=== PATIENT | male | born 1980 | race Caucasian/White ===

== ENCOUNTER 2021-04-21 15:30 | Emergency (ER) | payer OTHER ==
[~2021-04-21] VITALS: Ht 175.3 cm; Wt 86.2 kg
[2021-04-21 15:57] LABS: BASOPHILS ABSOLUTE AUTO 0.05 K/mm3 (0.00-0.23); BASOPHILS PERCENT AUTO 0 % (0-2); EOSINOPHILS PERCENT AUTO 1 % (0-6); Hemoglobin 17.3 g/dL (13.5-17.5); IMMATURE GRAN ABSOLUTE AUTO 0.07 K/mm3 (0.00-0.10); IMMATURE GRAN PERCENT AUTO 0 % (0-1); LYMPHOCYTES ABSOLUTE AUTO 1.02 K/mm3 (0.84-5.20); LYMPHOCYTES PERCENT AUTO 6 % (21-46); MONOCYTES ABSOLUTE AUTO 1.43 K/mm3 (0.16-1.47); MONOCYTES PERCENT AUTO 8 % (4-13); Mean Corpuscular HGB 29.2 pg (26.0-34.0); Mean Corpuscular HGB Conc 34.6 g/dL (31.5-36.5); Mean Corpuscular Volume 84 fL (80-100); Mean Platelet Volume 9.3 fL (9.1-12.4); NEUTROPHILS ABSOLUTE AUTO 15.31 K/mm3 (1.96-9.15); NEUTROPHILS PERCENT AUTO 85 % (41-73); Platelet Count 228 K/mm3 (150-400); RDW Coefficient Variation 12.8 % (11.7-14.2); RDW Standard Deviation 39.7 fL (35.1-46.3); Red Blood Cell Count 5.93 M/mm3 (4.30-5.90); White Blood Cell Count 17.98 K/mm3 (4.00-11.30)
[2021-04-21 16:34] LABS: Alanine Aminotransfer (ALT/SGP 73 U/L (12-78); Albumin, Blood 3.4 g/dL (3.4-5.0); Alk Phos 74 U/L (50-136); Anion Gap 5 mmol/L (6-16); Aspartate Aminotrans (AST/SGOT 29 U/L (12-37); Bilirubin, Total 0.4 mg/dL (0.1-1.0); Blood Urea Nitrogen 10 mg/dL (8-24); Bun/Creatinine Ratio 10.8 (12.0-20.0); CO2, Blood 30 mmol/L (21-32); Calcium, Blood 8.7 mg/dL (8.5-10.1); Chloride, Blood 104 mmol/L (98-108); Creatinine, Blood 0.92 mg/dL (0.60-1.20); Globulin, Blood 3.5 g/dL (2.2-4.0); Glomerular Filtration Rate >60 (60-); Glucose, Blood 90 mg/dL (70-99); Potassium, Blood 3.6 mmol/L (3.5-5.5); Sodium, Blood 139 mmol/L (136-145); Total Protein, Blood 6.9 g/dL (6.4-8.2)
[2021-04-21] MEDS ORDERED: KEPPRA250 M2 (20:04)
[2021-04-21] MEDS ORDERED: LISI5 (20:04)
[2021-04-21] MEDS ORDERED: AMOCLA875 PO (20:33)
== END 2021-04-21 20:42 | disposition home or self-care (01) ==
LOC: ER 15:30
PROVIDERS: Physician Assistant
DX: J36 Peritonsillar abscess (principal); J02.9 Acute pharyngitis, unspecified; G40.909 Epilepsy, unspecified, not intractable, without status epilepticus; F17.290 Nicotine dependence, other tobacco product, uncomplicated; Z87.820 Personal history of traumatic brain injury
CPT/HCPCS: 80053; 85025; 96365; 96367; 96375; 99284-25; J0696; J1100; J1885; J1953; J7030